=== PATIENT | female | born 1965 | race Caucasian/White ===

== ENCOUNTER 2017-03-11 13:56 | Emergency (ER) | payer MEDICAID ==
[2017-03-11 14:14] VITALS: BP 143/96
[2017-03-11] MEDS ORDERED: Cyclobenzaprine 10 MG Tab PO ONE (14:35)
[2017-03-11] MEDS ORDERED: Ibuprofen 600 MG Tab PO ONE (14:36)
--- NOTE | 2017-03-11 15:38 | EDM.PDOC ---
ED HPI GENERAL MEDICAL PROBLEM - General Chief Complaint: Back Pain or Injury Stated Complaint: BACK PAIN Time Seen by Provider: 03/11/17 14:10 Source of Information: Reports: Patient History Limitations: Reports: No Limitations - History of Present Illness INITIAL COMMENTS - FREE TEXT/NARRATIVE: The patient presents with low back pain that started last night. She was standing getting ready to cut her 's hair and she developed left lower back pain. She has no numbness or weakness. She had no trouble with her back in the past. She has no bowel or bladder problems. She has no dysuria or hematuria. She has no fever or chills. 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 Right Lower Back Pain Score (Numeric/FACES): 8 - Related Data Allergies Allergy/AdvReac Type Severity Reaction Status Date / Time No Known Allergies Allergy Verified 03/11/17 14:17 Home Meds: Home Meds Cyclobenzaprine [Flexeril] 10 mg PO TID PRN #20 tablet 03/11/17 [Rx] Hydrocodone/Acetaminophen [Hydrocodon-Acetaminophen 5-325] 1 - 2 each PO Q6HR PRN #20 tablet 03/11/17 [Rx] Past Medical History - Past Health History Medical/Surgical History: Denies Medical/Surgical History [employer] History: Reports: Other (See Below) Other OB/BYN History: x 2 Musculoskeletal History: Reports: Other (See Below) Other Musculoskeletal History: broken toe Social & Family History - Tobacco Use Smoking Status *Q: Never Smoker Second Hand Smoke Exposure: No - Caffeine Use Caffeine Use: Reports: Coffee - Recreational Drug Use Recreational Drug Use: No ED ROS GENERAL - Review of Systems Review Of Systems: See Below Constitutional: Reports: No Symptoms HEENT: Reports: No Symptoms Respiratory: Reports: No Symptoms Cardiovascular: Reports: No Symptoms Endocrine: Reports: No Symptoms GI/Abdominal: Reports: No Symptoms : Reports: No Symptoms Musculoskeletal: Reports: Back Pain (Lower left) ED EXAM,LOWER BACK PAIN/INJURY - Physical Exam Exam: See Below Exam Limited By: No Limitations General Appearance: Alert, No Apparent Distress Ears: Normal External Exam Nose: Normal Inspection Head: Atraumatic, Normocephalic Neck: Normal Inspection Respiratory/Chest: No Respiratory Distress, Lungs Clear, Normal Breath Sounds Cardiovascular: Regular Rate, Rhythm, No Edema, No Murmur GI/Abdominal: Soft, Non-Tender, No Organomegaly Back Exam: Normal Inspection Extremities: Normal Inspection Neurological: Alert, No Motor/Sensory Deficits, Oriented x 3 Course - Vital Signs Last Recorded V/S: Last Vital Signs Temp 97.8 F 03/11/17 14:12 Pulse 91 03/11/17 14:12 Resp 16 03/11/17 14:12 BP 143/96 H 03/11/17 14:12 Pulse Ox 99 03/11/17 14:12 - Orders/Labs/Meds Orders: Active Orders 24 hr Category Date Time Status Lumbar Spine 2 or 3V [CR] Stat Exams 03/11/17 14:35 Taken Labs: Laboratory Tests 03/11/17 Range/Units 15:35 Urine Color Light yellow (Yellow) Urine Appearance Clear (Clear) Urine pH 6.0 (5.0-8.0) Ur Specific Whiteside 1.015 (1.005-1.030) Urine Protein Negative (Negative) Urine Glucose (UA) Negative (Negative) Urine Ketones Negative (Negative) Urine Occult Blood 1+ H (Negative) Urine Nitrite Negative (Negative) Urine Bilirubin Negative (Negative) Urine Urobilinogen 0.2 (0.2-1.0) Ur Leukocyte Esterase Trace H (Negative) Urine RBC 5-10 H (0-5) /hpf Urine WBC 5-10 H (0-5) /hpf Ur Epithelial Cells Not Reportable Ur Squamous Epith Cells 5-10 H (0-5) /hpf Urine Bacteria Few (FEW) /hpf Urine Mucus Few (FEW) /hpf Meds: Medications Discontinued Medications Generic Name Dose Route Start Last Admin Trade Name Freq PRN Reason Stop Dose Admin Cyclobenzaprine HCl 10 mg 03/11/17 14:35 03/11/17 14:52 Flexeril PO 03/11/17 14:36 10 mg ONETIME ONE Administration Ibuprofen 600 mg 03/11/17 14:36 03/11/17 14:53 Motrin PO 03/11/17 14:37 600 mg ONETIME ONE Administration - Re-Assessments/Exams Free Text/Narrative Re-Assessment/Exam: 03/11/17 15:38 I ordered a flexeril and motrin. I got an x-ray that shows nothing acute. I am waiting for a UA. 03/11/17 16:07 Her UA was contaminated. There was no sign of infection. Departure - Departure Time of Disposition: 16:10 Disposition: Home, Self-Care 01 Condition: good Clinical Impression: Low back pain Qualifiers: Chronicity: acute Back pain laterality: left Sciatica presence: without sciatica Qualified Code(s): M54.5 - Low back pain - Discharge Information Prescriptions: Hydrocodone/Acetaminophen [Hydrocodon-Acetaminophen 5-325] 1 - 2 each PO Q6HR PRN #20 tablet PRN Reason: Pain Cyclobenzaprine [Flexeril] 10 mg PO TID PRN #20 tablet PRN Reason: Pain Forms: ED Department Discharge Additional Instructions: Take the flexeril and hydrocodone as needed for pain. You may also use motrin or aleve. Drink plenty of fluids. Please return if you are worse. - My Orders Last 24 Hours: My Active Orders 03/11/17 14:35 Lumbar Spine 2 or 3V [CR] Stat - Assessment/Plan Last 24 Hours: My Active Orders 03/11/17 14:35 Lumbar Spine 2 or 3V [CR] Stat
--- NOTE | 2017-03-14 09:36 | CR ---
Lumbar spine: AP, lateral and cone down lateral views centered to the lumbosacral junction were obtained. Comparison: No previous study. Vertebral body heights and disc spaces are maintained. Minimal scattered endplate osteophytes are seen. Pedicles as well as transverse and spinous processes are intact. No subluxation or fracture is seen. Sacroiliac joints are within normal limits. Minimal scoliosis is noted. Impression: 1. Minimal scattered endplate osteophytes and minimal scoliosis. Diagnostic code #2
== END 2017-03-11 16:40 | disposition home or self-care (01) ==
LOC: JD.ED 13:56
DX: M54.5 Low back pain (principal)
CPT/HCPCS: 72100; 81001; 99284; A9270; 99283